=== PATIENT | male | born 1970 | race Caucasian/White ===

== ENCOUNTER 2018-10-16 18:54 | Emergency (ER) | payer OTHER ==
[2018-10-16 19:02] VITALS: BMI 28.2
--- NOTE | 2018-10-16 19:04 | PDOC ---
Rapid Medical Evaluation Chief Complaint: Pain, Acute Time Seen by Provider: 10/16/18 19:00 Medical Evaluation: Allergies Allergy/AdvReac Type Severity Reaction Status Date / Time No Known Allergies Allergy Verified 06/21/15 13:43 10/16/18 19:00 I have performed a brief in-person evaluation of this patient. The patient presents with a chief complaint of: LUQ abd pain on and off x 2 months - drinks occasionally , no fevers/ N/V/D/C Pertinent physical exam findings: abd soft/ no rebound I have ordered the following: UA/ The patient will proceed to the ED for further evaluation. 10/16/18 19:03 Discharge Disposition - Diagnosis Abdominal pain - Discharge Dispostion Condition at time of disposition: Stable - Referrals Referrals: Colin Pantoja MD [Primary Care Provider] - - Patient Instructions - Post Discharge Activity
--- NOTE | 2018-10-16 21:15 | PDOC ---
History of Present Illness - General Chief Complaint: Pain, Acute Stated Complaint: ABD.PAIN Time Seen by Provider: 10/16/18 19:00 - History of Present Illness Initial Comments: 10/16/18 21:06 CHIEF COMPLAINT: left sided abdominal pain HISTORY OF PRESENT ILLNESS: 48 yo M with no significant PMH presents to ED with left sided abdominal pain since yesterday. Patient reports he had similar symptoms two months ago and was given omeprazole, amoxicillin, and clarithromycin by his PCP MD Colin Pantoja. He states that he completed the regimen of medications but has not had any relief. Denies any fever, chills, nausea, vomiting, diarrhea. Last BM was today and was normal. No recent travel or sick contacts. PAST MEDICAL HISTORY: Denies past medical history FAMILY HISTORY: Denies SOCIAL HISTORY: Denies tobacco, alcohol, illicit drug use. SURGICAL HISTORY: Denies ALLERGIES: No known drug allergies REVIEW OF SYSTEMS General/Constitutional: Denies fever or chills. Denies weakness, weight change. HEENT: Denies change in vision. Denies ear pain or discharge. Denies sore throat. Cardiovascular: Denies chest pain or shortness of breath. Respiratory: Denies cough, wheezing, or hemoptysis. Gastrointestinal: LLQ pain x 1 day. Denies nausea, vomiting, diarrhea or constipation. Denies rectal bleeding. Genitourinary: Denies dysuria, frequency, or change in urination. Musculoskeletal: Denies joint or muscle swelling or pain. Denies neck or back pain. Skin and breasts: Denies rash or easy bruising. Neurologic: Denies headache, vertigo, loss of consciousness, or loss of sensation. PHYSICAL EXAM General Appearance: Well-appearing, appropriately dressed. No apparent distress , no intoxication. HEENT: EOMI, PERRLA, normal ENT inspection, normal voice, TMs normal, pharynx normal. No conjunctival pallor. No photophobia, scleral icterus. Neck: Supple. Trachea midline. No tenderness, rigidity, carotid bruit, stridor , lymphadenopathy, or thyromegaly. Respiratory/Chest: Lungs CTAB. No shortness of breath, chest tenderness, respiratory distress, accessory muscle use. No crackles, rales, rhonchi, stridor , wheezing, dullness Cardiovascular: RRR. S1, S2. No JVD, murmur, bradycardia, tachycardia. Vascular Pulses: Dorsalis-Pedis (R): 2+, Dorsalis-Pedis (L): 2+ Gastrointestinal/Abdominal: Mild tenderness to LLQ on palpation. Hyperactive bowel sounds. Abdomen soft, non-distended. Norebound tenderness. No organomegaly, pulsatile mass, guarding, hernia, hepatomegaly, splenomegaly. Lymphatic: No adenopathy, tenderness. Musculoskeletal/Extremities: Normal inspection. FROM of all extremities, normal capillary refill. Pelvis Stable. No CVA tenderness. No tenderness to extremities, pedal edema, swelling, erythema or deformity. Integumentary: Appropriate color, dry, warm. No cyanosis, erythema, jaundice or rash Neurologic: control system manager II-XII intact. Fully oriented, alert. Appropriate mood/affect. Motor strength 5/5. No appreciable EOM palsy, facial droop or sensory deficit. Past History - Past Medical History Allergies/Adverse Reactions: Allergies Allergy/AdvReac Type Severity Reaction Status Date / Time No Known Allergies Allergy Verified 06/21/15 13:43 Home Medications: Ambulatory Orders Naproxen [Naprosyn -] 500 mg PO BID PRN #14 tablet 06/21/15 Docusate Sodium [Colace] 100 mg PO DAILY #10 capsule 10/16/18 Lactulose (Oral Use) [Cephulac -] 20 gm PO TID #1 bottle 10/16/18 COPD: No Disorders: No Psychiatric Problems: No - Immunization History Immunization Up to Date: No - Suicide/Smoking/Psychosocial Hx Smoking History: Never smoked Have you smoked in the past 12 months: No Information on smoking cessation initiated: No Hx Alcohol Use: Yes Drug/Substance Use Hx: No Substance Use Type: Alcohol *Physical Exam - Vital Signs Last Vital Signs Temp Pulse Resp BP Pulse Ox 97.8 F 65 18 122/73 100 10/16/18 18:59 10/16/18 18:59 10/16/18 18:59 10/16/18 18:59 10/16/18 18:59 ED Treatment Course - LABORATORY CBC & Chemistry Diagram: 10/16/18 21:15 10/16/18 21:15 - RADIOLOGY Radiology Studies Ordered: Category Date Time Status ABDOMEN FLAT & UPRIGHT [RAD] Stat Radiology 10/16/18 21:05 Ordered Medical Decision Making - Medical Decision Making 10/16/18 21:15 48 yo M with no significant PMH presents to ED with left sided abdominal pain since yesterday. DDx: constipation, gas, hernia, muscle strain -labs, urine -abd x-ray, eval constipation/gas *DC/Admit/Observation/Transfer Diagnosis at time of Disposition: Abdominal pain Qualifiers: Abdominal location: generalized Qualified Code(s): R10.84 - Generalized abdominal pain Constipation Qualifiers: Constipation type: unspecified constipation type Qualified Code(s): K59.00 - Constipation, unspecified - Discharge Dispostion Disposition: HOME Condition at time of disposition: Stable Decision to Admit order: No - Prescriptions Prescriptions: Docusate Sodium [Colace] 100 mg PO DAILY #10 capsule Lactulose (Oral Use) [Cephulac -] 20 gm PO TID #1 bottle - Referrals Referrals: Colin Pantoja MD [Primary Care Provider] - Marii Wilkerson MD [Staff Physician] - - Patient Instructions Printed Discharge Instructions: DI for Constipation Additional Instructions: Please take medications as prescribed. If your symptoms persist past 1 week, please make an appointment with the personal development mentor. If you develop any vomiting, fever, rectal bleeding, or any new or worsening symptoms, please return to the ER. - Post Discharge Activity Forms/Work/School Notes: Back to Work
[2018-10-16 21:28] LABS: PH,URINE 5.5 (5.0-8.0); URINE APPEARANCE CLEAR; URINE BILIRUBIN NEGATIVE (NEGATIVE); URINE COLOR YELLOW; URINE GLUCOSE (UA) NEGATIVE (NEGATIVE); URINE KETONE NEGATIVE (NEGATIVE); URINE LEUK ESTERASE NEGATIVE (NEGATIVE); URINE NITRITE NEGATIVE (NEGATIVE); URINE PROTEIN NEGATIVE (NEGATIVE)
[2018-10-16 21:56] LABS: BASO % 0.3 % (0-2.0); EOS % 2.2 % (0-4.5); HEMATOCRIT 41.5 % (35.4-49); HEMOGLOBIN 14.4 GM/dL (11.7-16.9); LYMPH % 24.8 % (8-40); MCH 31.2 pg (25.7-33.7); MCHC 34.7 g/dl (32.0-35.9); MEAN CELL VOLUME 89.9 fl (80-96); MEAN PLT VOLUME 8.2 fl (7.5-11.1); MONO % 7.4 % (3.8-10.2); NEUT % 65.3 % (42.8-82.8); PLATELET COUNT 177 K/MM3 (134-434); RBC 4.61 M/mm3 (4.00-5.60); WHITE BLOOD COUNT 5.9 K/mm3 (4.0-10.0)
[2018-10-16 21:59] LABS: ALBUMIN 4.4 g/dl (3.4-5.0); BILIRUBIN,TOTAL 0.9 mg/dL (0.2-1); BLOOD UREA NITROGEN 14.2 mg/dL (7-18); CALCIUM 9.2 mg/dL (8.5-10.1); CREATININE 0.9 mg/dL (0.55-1.3); POTASSIUM 4.4 mmol/L (3.5-5.1); TOT PROT 7.2 g/dl (6.4-8.2)
[2018-10-16] MEDS ORDERED: KETOROLAC TROMETHAMINE 30 MG/1 ML VIAL IVPUSH ONE (22:08)
[2018-10-16] MEDS ORDERED: KETOROLAC TROMETHAMINE 30 MG/1 ML VIAL ONE (22:10)
[2018-10-17 00:19] VITALS: BP 120/70; PULSE 78; TEMP 98.1
== END 2018-10-17 00:18 | disposition home or self-care (01) ==
LOC: JER 18:54
PROC: 3E0233Z Introduction of Anti-inflammatory into Muscle, Percutaneous Approach (ICD-10-PCS; principal; 2018-10-16)
DX: R10.84 Generalized abdominal pain (principal); K59.00 Constipation, unspecified
CPT/HCPCS: 36415; 74019-TC-FY; 80053; 81003; 83690; 85025; 99283-25

== ENCOUNTER 2020-12-21 08:38 | Emergency (ER) | payer OTHER ==
[2020-12-21 08:48] VITALS: BP 124/79; PULSE 75; TEMP 97.9; BMI 29.7
[2020-12-21] MEDS ORDERED: KETOROLAC TROMETHAMINE 60 MG/2 ML VIAL IM ONE (09:35)
[2020-12-21] MEDS ORDERED: KETOROLAC TROMETHAMINE 30 MG/1 ML VIAL ONE (09:37)
== END 2020-12-21 10:33 | disposition home or self-care (01) ==
LOC: JERFT 08:38
PROC: 3E0233Z Introduction of Anti-inflammatory into Muscle, Percutaneous Approach (ICD-10-PCS; principal; 2020-12-21)
DX: M25.512 Pain in left shoulder (principal)
CPT/HCPCS: 73030-TC-LT-FY; 99284-25

== ENCOUNTER 2023-04-23 06:56 | Emergency (ER) | payer OTHER ==
[2023-04-23 07:12] VITALS: RESP 18; BMI 30.4
[2023-04-23] MEDS ORDERED: ACETAMINOPHEN 1000 MG/100 ML BAG IVPB ONE (07:34)
[2023-04-23] MEDS ORDERED: FAMOTIDINE 20 MG/50 ML IVPB 20 MG/50 ML MG IVPB ONE ×2 (07:34→07:41)
[2023-04-23] MEDS ORDERED: SODIUM CHLORIDE 1,000 ML IV STA (07:34)
[2023-04-23] MEDS ORDERED: ONDANSETRON 4 MG/2 ML VIAL IVPUSH ONE (07:34)
[2023-04-23] MEDS ORDERED: MAG HYDROX/AL HYDROX/SIMETH 30 ML UNIT-DOSE CUP PO ONE (07:34)
[2023-04-23] MEDS ORDERED: ACETAMINOPHEN INJECTION 100 ML IVPB ONE (07:41)
[2023-04-23] MEDS ORDERED: ONDANSETRON 4 MG/2 ML VIAL ONE (07:41)
[2023-04-23] MEDS ORDERED: MAG HYDROX/AL HYDROX/SIMETH 30 ML UNIT-DOSE CUP ONE (07:41)
[2023-04-23 08:12] LABS: BASO % 0.4 % (0-2.0); EOS % 1.5 % (0-4.5); HEMATOCRIT 44.9 % (35.4-49); HEMOGLOBIN 15.4 GM/dL (11.7-16.9); LYMPH % 18.4 % (8-40); MCH 30.7 pg (25.7-33.7); MCHC 34.4 g/dl (32.0-35.9); MEAN CELL VOLUME 89.4 fl (80-96); MEAN PLT VOLUME 7.9 fl (7.5-11.1); NEUT % 73.7 % (42.8-82.8); PLATELET COUNT 169 10^3/uL (134-434); RBC 5.02 M/mm3 (4.00-5.60); RDW 14.2 % (11.9-15.9); WHITE BLOOD COUNT 5.4 K/mm3 (4.0-10.0)
[2023-04-23 08:40] LABS: POTASSIUM 4.1 mmol/L (3.5-5.1)
[2023-04-23 08:42] LABS: ALBUMIN 4.3 g/dl (3.4-5.0); BLOOD UREA NITROGEN 9.6 mg/dL (7-18)
[2023-04-23 08:43] LABS: CALCIUM 9.6 mg/dL (8.5-10.1)
[2023-04-23 08:45] LABS: CREATININE 0.8 mg/dL (0.55-1.3)
[2023-04-23 08:47] LABS: BILIRUBIN,TOTAL 1.1 mg/dL (0.2-1); TOT PROT 7.6 g/dl (6.4-8.2)
[2023-04-23] MEDS ORDERED: PANTOPRAZOLE SODIUM 40 MG VIAL IVPUSH ONE (09:19)
[2023-04-23] MEDS ORDERED: SUCRALFATE 1 GM/10 ML UNIT DOSE CUPS PO ONE (09:20)
[2023-04-23] MEDS ORDERED: PANTOPRAZOLE SODIUM 40 MG/100 ML BAG IVPB ONE (09:21)
[2023-04-23] MEDS ORDERED: SUCRALFATE 1 GM TABLET (FP) ONE (10:34)
[2023-04-23 10:44] VITALS: BP 123/66; PULSE 60; TEMP 98
== END 2023-04-23 10:44 | disposition home or self-care (01) ==
LOC: JER 06:56
PROC: 3E033GC Introduction of Other Therapeutic Substance into Peripheral Vein, Percutaneous Approach (ICD-10-PCS; principal; 2023-04-23)
PROC: 3E033NZ Introduction of Analgesics, Hypnotics, Sedatives into Peripheral Vein, Percutaneous Approach (ICD-10-PCS; 2023-04-23)
PROC: 3E033GC Introduction of Other Therapeutic Substance into Peripheral Vein, Percutaneous Approach (ICD-10-PCS; 2023-04-23)
PROC: 3E033GC Introduction of Other Therapeutic Substance into Peripheral Vein, Percutaneous Approach (ICD-10-PCS; 2023-04-23)
DX: R10.13 Epigastric pain (principal); R11.0 Nausea
CPT/HCPCS: 36415; 80053; 83690; 84484; 85025; 93005; 93010; 99284-25